=== PATIENT | male | born 1985 | race Two or more races ===

== ENCOUNTER 2020-06-16 06:46 | Emergency (ER) | payer MEDICAID, OTHER ==
[~2020-06-16] VITALS: Ht 172.7 cm; Wt 90.9 kg
[2020-06-16] MEDS ORDERED: SODIUM CHLORIDE 0.9% 250 ML IRRIG SOLUTION BOTTLE IRRIG ONE (08:15)
[2020-06-16] MEDS ORDERED: PERTUSS(ACELL),DIPH,TET VAC/PF 0.5 ML VIAL IM ONE (08:15)
[2020-06-16] MEDS ORDERED: BACITRACIN 0.9 GM PACKET OINTMENT TP ONE (08:15)
[2020-06-16] MEDS ORDERED: HYDROCODONE/ACETAMINOPHEN 5-325 MG TABLET PO ONE (08:15)
[2020-06-16 10:52] VITALS: BP 119/73
== END 2020-06-16 11:34 | disposition home or self-care (01) ==
LOC: EMS 06:48
DX: S42.032A Displaced fracture of lateral end of left clavicle, initial encounter for closed fracture (principal); S22.32XA Fracture of one rib, left side, initial encounter for closed fracture; S00.83XA Contusion of other part of head, initial encounter; F12.90 Cannabis use, unspecified, uncomplicated; V19.9XXA Pedal cyclist (driver) (passenger) injured in unspecified traffic accident, initial encounter; Y93.55 Activity, bike riding; Y92.828 Other wilderness area as the place of occurrence of the external cause; Y99.8 Other external cause status
CPT/HCPCS: 29105; 70460; 70486; 71101; 72125; 90471; 90715